=== PATIENT | male | born 1965 | race Caucasian/White ===

== ENCOUNTER 2020-04-30 20:34 | Emergency (ER) | payer BC ==
[2020-04-30 20:45] LABS: Glucose,Whole Blood 139 mg/dL (75-99)
[2020-04-30 21:01] LABS: Basophils # (A) 0.1 k/uL (0-0.2); Basophils % (A) 0 %; Eosinophils # (A) 0.2 k/uL (0-0.7); Eosinophils % (A) 1 %; HGB 13.9 gm/dL (13.0-17.5); Lymphocytes # (A) 1.9 k/uL (1.0-4.8); Lymphocytes % (A) 9 %; MCH 35.5 pg (25.0-35.0); MCHC 31.6 g/dL (31.0-37.0); MCV 112.3 fL (80.0-100.0); Macrocytosis Marked; Mean Platelet Volume 7.9; Monocytes # (A) 0.8 k/uL (0-1.0); Monocytes % (A) 4 %; Neutrophils # (A) 16.9 k/uL (1.3-7.7); Neutrophils % (A) 84 %; Platelet Count 414 k/uL (150-450); RBC 3.92 m/uL (4.30-5.90); RDW 15.5 % (11.5-15.5); WBC 20.1 k/uL (3.8-10.6)
[2020-04-30 21:08] LABS: Creatine Kinase 35 U/L (55-170)
[2020-04-30 21:10] LABS: INR 1.5 (<1.2); Partial Thromboplastin Time 27.4 sec (22.0-30.0); Prothrombin Time 14.9 sec (9.0-12.0)
[2020-04-30 21:11] LABS: AST 149 U/L (17-59); African American GFR (CKD) >90 (>60 ml/min/1.73 sqM); Albumin 2.8 g/dL (3.5-5.0); Alcohol <10 mg/dL; Alkaline Phosphatase 149 U/L (38-126); Amylase <30 U/L (30-110); Anion Gap 13 mmol/L; Blood Urea Nitrogen 12 mg/dL (9-20); Carbon Dioxide 18 mmol/L (22-30); Chloride 99 mmol/L (98-107); Glucose 140 mg/dL (74-99); Lipase 82 U/L (23-300); Non-African American GFR(CKD) >90 (>60 ml/min/1.73 sqM); Potassium 4.1 mmol/L (3.5-5.1); Sodium 130 mmol/L (137-145); Total Bilirubin 1.7 mg/dL (0.2-1.3); Total Protein 5.6 g/dL (6.3-8.2)
[2020-04-30 21:21] LABS: ALT 52 U/L (4-49)
[2020-04-30 21:22] LABS: Creatine Kinase MB 0.4 ng/mL (0.0-2.4); Troponin I <0.012 ng/mL (0.000-0.034)
--- NOTE | 2020-04-30 21:26 | XR ---
EXAMINATION TYPE: XR chest 1V portable DATE OF EXAM: 04/30/2020 COMPARISON: NONE HISTORY: Trauma. Fall. Pain TECHNIQUE: Single view FINDINGS: There is some pleural reaction and subsegmental atelectasis at the lung bases. There is no heart failure. Heart size is normal. There are no hilar masses. There are chest leads. IMPRESSION: Bilateral basilar pleural reaction and fluid. No pneumothorax. No rib fracture seen.
--- NOTE | 2020-04-30 21:28 | XR ---
EXAMINATION TYPE: XR pelvis AP view DATE OF EXAM: 04/30/2020 COMPARISON: NONE HISTORY: Fall. Pain. TECHNIQUE: Single view FINDINGS: Pelvic ring is intact. Proximal femurs and hip joints are intact. Sacroiliac joints appear normal. IMPRESSION: Negative exam. No fracture seen.
--- NOTE | 2020-04-30 21:32 | CT ---
EXAMINATION TYPE: CT brain parvin wo con DATE OF EXAM: 04/30/2020 COMPARISON: HISTORY: PT fell off porch. LAC to LT side of head CT DLP: 1307.5 mGycm Automated exposure control for dose reduction was used. Exam performed without contrast. There is cerebral cortical atrophy. There is no mass effect nor midline shift. There is no sign of in tracranial hemorrhage. Calvarium is intact. There is normal aeration of the temporal bones. Skull bas e appears intact. Cervical vertebra have normal alignment. Disc spaces are fairly normal. There is spurring of the endp lates. Posterior elements are intact. There is no compression fracture. Prevertebral soft tissues cody ear normal. There is mild spondylotic changes from C4 to T1. IMPRESSION: Cerebral atrophy. No acute intracranial abnormality. Spondylosis is mild in the mid and lower cervical spine. No fracture seen.
[2020-04-30] MEDS ORDERED: SODIUM CHLORIDE 0.9% 1,000 ML IV STA (22:56)
[2020-04-30] MEDS ORDERED: TOPICAL SKIN ADHESIVE 1 EACH AMP TOPICAL ONE (22:57)
[2020-04-30 23:10] VITALS: RESP 16
--- NOTE | 2020-04-30 23:12 | ED ---
Fall HPI - General Chief Complaint: Fall Stated Complaint: Fall Time Seen by Provider: 04/30/20 20:34 Source: patient, family, EMS, RN notes reviewed Mode of arrival: EMS - History of Present Illness Initial Comments: Social 54-year-old male with a history of alcoholism who had just been discharged from [facility] today who wasn't try to get into his home felt lightheaded and weak went down. He apparently had a bowel movement and then fell forward hitting his face on the ground. He was out for approximately 30 seconds he woke up he did have some sonorous respirations and during that time per family who was present per paramedics she did apparently have some sluggishness of his eyes and pupils initially. The time he arrived here he was awake alert oriented 3. His recall all the events. Complains of localized pain over his left for had no overt neck or back pain no pelvis pain no other reported problems. He does state that he was admitted because of abdominal pain and GI bleeding he was just discharged this morning. The patient was upgraded to a priority 2. Dr. Duff did call. MD Complaint: fall - Related Data Home Medications Medication Instructions Recorded Confirmed Aspirin EC [Ecotrin Low Dose] 81 mg PO DAILY 04/30/20 04/30/20 Atorvastatin [Lipitor] 20 mg PO DAILY 04/30/20 04/30/20 Cefdinir [Omnicef] 300 mg PO BID 04/30/20 04/30/20 Folic Acid 1 mg PO DAILY 04/30/20 04/30/20 Furosemide [Lasix] 20 mg PO DAILY 04/30/20 04/30/20 Ibuprofen [Motrin] 800 mg PO Q8H PRN 04/30/20 04/30/20 Spironolactone [Aldactone] 25 mg PO DAILY 04/30/20 04/30/20 metroNIDAZOLE [Flagyl] 500 mg PO TID 04/30/20 04/30/20 Allergies Allergy/AdvReac Type Severity Reaction Status Date / Time naproxen Allergy Rash/Hives Verified 04/30/20 22:36 Review of Systems ROS Statement: Those systems with pertinent positive or pertinent negative responses have been documented in the HPI. ROS Other: All systems not noted in ROS Statement are negative. Past Medical History Past Medical History: Unable to Obtain Additional Past Medical History / Comment(s): Ascities History of Any Multi-Drug Resistant Organisms: None Reported Past Surgical History: Unable to Obtain Past Psychological History: No Psychological Hx Reported Smoking Status: Current every day smoker Past Alcohol Use History: Unable to Obtain Past Drug Use History: Unable to Obtain General Exam - General Exam Comments Initial Comments: This is a well-developed asthenic appearing male who is awake alert oriented 3 at this time with a Parrott Coma Scale of 15 Limitations: altered mental status General appearance: alert, in no apparent distress Head exam: Present: other (There is approximately 2 cm laceration to left for had no active bleeding no step-off or crepitation some localized abrasion) Eye exam: Present: normal appearance, PERRL, EOMI. Absent: scleral icterus, conjunctival injection, periorbital swelling ENT exam: Present: normal exam, mucous membranes moist Neck exam: Present: normal inspection, other (Cervical collar was in place). Absent: tenderness, meningismus, lymphadenopathy Respiratory exam: Present: normal lung sounds bilaterally. Absent: respiratory distress, wheezes, rales, rhonchi, stridor Cardiovascular Exam: Present: normal rhythm, tachycardia, normal heart sounds. Absent: systolic murmur, diastolic murmur, rubs, gallop, clicks GI/Abdominal exam: Present: soft, distended (Some distention indicative of ascites), normal bowel sounds. Absent: tenderness, guarding, rebound, rigid Rectal exam: Present: deferred Extremities exam: Present: normal inspection, full ROM, normal capillary refill. Absent: tenderness, pedal edema, joint swelling, calf tenderness Back exam: Present: normal inspection Neurological exam: Present: alert, oriented X3, CN II-XII intact Psychiatric exam: Present: normal affect, normal mood Skin exam: Present: warm, dry, intact, normal color. Absent: rash Course Vital Signs 04/30/20 04/30/20 20:36 23:08 Temperature 98.2 F Pulse Rate 116 H 115 H Respiratory 18 16 Rate Blood Pressure 129/98 113/81 O2 Sat by Pulse 100 Oximetry - Reevaluation(s) Reevaluation #1: 04/30/20 23:10 I did review the imaging and reports no evidence of acute findings CT of the head neck are negative for acute processes. 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 We did discuss the patient's lab work including the white blood cell count and lactic acid elevation. Clinically patient does appear to be vomited completed and is likely the source for the lactic acid. He was sent home on appropriate medications from [facility]. We did discuss admission and/or transfer the do not want to do either. The patient and family does except responsibility for clinical usp and her fully aware of the concerns I have with the lactic acid elevation as well as the white blood cell count. The patient does demonstrate decision making capacity. Return parameters were discussed and they 're in agreement with it. Patient will at least receive a liter of IV fluid prior to discharge there in agreement with. - Lab Data Result diagrams: 04/30/20 20:50 04/30/20 20:50 Lab Results 04/30/20 04/30/20 04/30/20 Range/Units 20:43 20:45 20:50 WBC 20.1 H (3.8-10.6) k/uL RBC 3.92 L (4.30-5.90) m/uL Hgb 13.9 (13.0-17.5) gm/dL Hct 44.0 (39.0-53.0) % MCV 112.3 H (80.0-100.0) fL MCH 35.5 H (25.0-35.0) pg MCHC 31.6 (31.0-37.0) g/dL RDW 15.5 (11.5-15.5) % Plt Count 414 (150-450) k/uL Neutrophils % 84 % Lymphocytes % 9 % Monocytes % 4 % Eosinophils % 1 % Basophils % 0 % Neutrophils # 16.9 H (1.3-7.7) k/uL Lymphocytes # 1.9 (1.0-4.8) k/uL Monocytes # 0.8 (0-1.0) k/uL Eosinophils # 0.2 (0-0.7) k/uL Basophils # 0.1 (0-0.2) k/uL Macrocytosis Marked A PT (9.0-12.0) sec INR (<1.2) APTT (22.0-30.0) sec Sodium (137-145) mmol/L Potassium (3.5-5.1) mmol/L Chloride (98-107) mmol/L Carbon Dioxide (22-30) mmol/L Anion Gap mmol/L BUN (9-20) mg/dL Creatinine (0.66-1.25) mg/dL Est GFR (CKD-EPI)AfAm (>60 ml/min/1.73 sqM) Est GFR (CKD-EPI)NonAf (>60 ml/min/1.73 sqM) Glucose (74-99) mg/dL POC Glucose (mg/dL) 139 H (75-99) mg/dL POC Glu Hospital Technician ID Amos Rodrigues Plasma Lactic Acid Jason (0.7-2.0) mmol/L Calcium (8.4-10.2) mg/dL Total Bilirubin (0.2-1.3) mg/dL AST (17-59) U/L ALT (4-49) U/L Alkaline Phosphatase (38-126) U/L Total Creatine Kinase (55-170) U/L CK-MB (CK-2) (0.0-2.4) ng/mL CK-MB (CK-2) Rel Index Troponin I (0.000-0.034) ng/mL Total Protein (6.3-8.2) g/dL Albumin (3.5-5.0) g/dL Amylase (30-110) U/L Lipase (23-300) U/L Serum Alcohol mg/dL Blood Type A Positive Blood Type Confirm Blood Type Recheck No Previous Record Bld Type Recheck Status CABO Indicated Antibody Screen NEGATIVE Spec Expiration Date 05/03/2020234904/30/20 04/30/20 04/30/20 Range/Units 20:50 20:50 20:50 WBC (3.8-10.6) k/uL RBC (4.30-5.90) m/uL Hgb (13.0-17.5) gm/dL Hct (39.0-53.0) % MCV (80.0-100.0) fL MCH (25.0-35.0) pg MCHC (31.0-37.0) g/dL RDW (11.5-15.5) % Plt Count (150-450) k/uL Neutrophils % % Lymphocytes % % Monocytes % % Eosinophils % % Basophils % % Neutrophils # (1.3-7.7) k/uL Lymphocytes # (1.0-4.8) k/uL Monocytes # (0-1.0) k/uL Eosinophils # (0-0.7) k/uL Basophils # (0-0.2) k/uL Macrocytosis PT 14.9 H (9.0-12.0) sec INR 1.5 H (<1.2) APTT 27.4 (22.0-30.0) sec Sodium 130 L (137-145) mmol/L Potassium 4.1 (3.5-5.1) mmol/L Chloride 99 (98-107) mmol/L Carbon Dioxide 18 L (22-30) mmol/L Anion Gap 13 mmol/L BUN 12 (9-20) mg/dL Creatinine 0.76 (0.66-1.25) mg/dL Est GFR (CKD-EPI)AfAm >90 (>60 ml/min/1.73 sqM) Est GFR (CKD-EPI)NonAf >90 (>60 ml/min/1.73 sqM) Glucose 140 H (74-99) mg/dL POC Glucose (mg/dL) (75-99) mg/dL POC Glu Hospital Technician ID Plasma Lactic Acid Jason (0.7-2.0) mmol/L Calcium 8.0 L (8.4-10.2) mg/dL Total Bilirubin 1.7 H (0.2-1.3) mg/dL AST 149 H (17-59) U/L ALT 52 H (4-49) U/L Alkaline Phosphatase 149 H (38-126) U/L Total Creatine Kinase 35 L (55-170) U/L CK-MB (CK-2) 0.4 (0.0-2.4) ng/mL CK-MB (CK-2) Rel Index 1.1 Troponin I <0.012 (0.000-0.034) ng/mL Total Protein 5.6 L (6.3-8.2) g/dL Albumin 2.8 L (3.5-5.0) g/dL Amylase <30 L (30-110) U/L Lipase 82 (23-300) U/L Serum Alcohol <10 mg/dL Blood Type Blood Type Confirm Blood Type Recheck Bld Type Recheck Status Antibody Screen Spec Expiration Date 04/30/20 04/30/20 Range/Units 20:50 21:50 WBC (3.8-10.6) k/uL RBC (4.30-5.90) m/uL Hgb (13.0-17.5) gm/dL Hct (39.0-53.0) % MCV (80.0-100.0) fL MCH (25.0-35.0) pg MCHC (31.0-37.0) g/dL RDW (11.5-15.5) % Plt Count (150-450) k/uL Neutrophils % % Lymphocytes % % Monocytes % % Eosinophils % % Basophils % % Neutrophils # (1.3-7.7) k/uL Lymphocytes # (1.0-4.8) k/uL Monocytes # (0-1.0) k/uL Eosinophils # (0-0.7) k/uL Basophils # (0-0.2) k/uL Macrocytosis PT (9.0-12.0) sec INR (<1.2) APTT (22.0-30.0) sec Sodium (137-145) mmol/L Potassium (3.5-5.1) mmol/L Chloride (98-107) mmol/L Carbon Dioxide (22-30) mmol/L Anion Gap mmol/L BUN (9-20) mg/dL Creatinine (0.66-1.25) mg/dL Est GFR (CKD-EPI)AfAm (>60 ml/min/1.73 sqM) Est GFR (CKD-EPI)NonAf (>60 ml/min/1.73 sqM) Glucose (74-99) mg/dL POC Glucose (mg/dL) (75-99) mg/dL POC Glu Hospital Technician ID Plasma Lactic Acid Jason 6.1 H* (0.7-2.0) mmol/L Calcium (8.4-10.2) mg/dL Total Bilirubin (0.2-1.3) mg/dL AST (17-59) U/L ALT (4-49) U/L Alkaline Phosphatase (38-126) U/L Total Creatine Kinase (55-170) U/L CK-MB (CK-2) (0.0-2.4) ng/mL CK-MB (CK-2) Rel Index Troponin I (0.000-0.034) ng/mL Total Protein (6.3-8.2) g/dL Albumin (3.5-5.0) g/dL Amylase (30-110) U/L Lipase (23-300) U/L Serum Alcohol mg/dL Blood Type Blood Type Confirm A Positive Blood Type Recheck Bld Type Recheck Status Antibody Screen Spec Expiration Date - EKG Data -: EKG Interpreted by Me EKG shows normal: sinus rhythm EKG Comments: Time 6 3113. Interval 184 QRS duration 70 QT since QTC 334/460 rate exodeviation evidence of possible septal infarct of undetermined age - Radiology Data Radiology results: report reviewed (I did review the imaging and report no acute findings.), image reviewed Critical Care Time Critical Care Time: Yes Total Critical Care Time: 31 Critical Care Time: Critical care time included initial presentation with history physical labs x- rays discussed with the patient family regarding the initial incident as well as with paramedics. Multiple reevaluation the patient discussed with patient regarding the findings. Discussed with family. Documentation the above this does not include laceration repair. Disposition Clinical Impression: Vasovagal attack, Orthostatic hypotension, Fall, Dehydration, Lactic acidosis, Forehead laceration Disposition: HOME SELF-CARE Condition: Good Instructions (If sedation given, give patient instructions): Facial Laceration (ED), Dehydration (ED), Syncope (ED), Hypotension (ED) Is patient prescribed a controlled substance at d/c from ED?: No Referrals: Ruba Beatty MD [Primary Care Provider] - 1-2 days
[2020-04-30 23:52] VITALS: BP 115/74; PULSE 98; TEMP 97.4
== END 2020-04-30 23:45 | disposition home or self-care (01) ==
LOC: EC 20:34
DX: I95.1 Orthostatic hypotension (principal); E86.0 Dehydration; S01.81XA Laceration without foreign body of other part of head, initial encounter; R00.0 Tachycardia, unspecified; R74.0 Nonspecific elevation of levels of transaminase and lactic acid dehydrogenase [LDH]; F17.200 Nicotine dependence, unspecified, uncomplicated; Z88.6 Allergy status to analgesic agent; W01.198A Fall on same level from slipping, tripping and stumbling with subsequent striking against other object, initial encounter; Y92.89 Other specified places as the place of occurrence of the external cause
CPT/HCPCS: 12001; 12011; 36415; 70450; 71045; 72125; 72170; 80053; 80320; 82150; 82550; 82553; 83605; 83690; 84484; 85025; 85610; 85730; 86850; 86900; 86901; 93005; 99291